=== PATIENT | female | born 1990 | race Caucasian/White ===

== ENCOUNTER 2017-06-08 09:05 | Emergency (ER) | END 2017-06-08 12:42 | disposition home or self-care (01) ==

== ENCOUNTER 2017-12-10 11:20 | Emergency (ER) | END 2017-12-10 14:19 | disposition home or self-care (01) ==

== ENCOUNTER 2018-03-31 18:42 | Emergency (ER) | END 2018-03-31 21:58 | disposition home or self-care (01) ==

== ENCOUNTER 2018-09-30 18:54 | Emergency (ER) | payer OTHER ==
[~2018-09-30] VITALS: Ht 165.1 cm; Wt 104.0 kg
[~2018-09-30 18:54] MED LIST: CYCL5TAB PO; FERR240T9 PO; HYDR-4011 PO; IBUP-1542 PO; PRENAT PO; TAMS-14 PO
[2018-09-30 19:02] VITALS: BP 133/66; PULSE 102; RESP 18; Ht 165.1 cm; Wt 104.0 kg
[2018-09-30] MEDS ORDERED: AMOX500C2 PO (19:44)
[2018-09-30] MEDS ORDERED: IBUP-1542 PO (19:44)
--- NOTE | 2018-09-30 19:47 | ERD ---
ER Documentation Chief Complaint Chief Complaint BODY ACHES AND FEVER X 2 DAYS HPI 28-year-old female presents with sore throat, body aches and fever for the last 3 days. She denies cough, vomiting, abdominal pain, urinary complaints. ROS All systems reviewed and are negative except as per history of present illness. Medications Home Meds Active Scripts Amoxicillin* (Amoxicillin*) 500 Mg Cap, 500 MG PO TID for 10 Days, CAP Prov:NATHEN MENJIVAR MD 09/30/18 Ibuprofen* (Motrin*) 600 Mg Tab, 600 MG PO Q6, #20 TAB Prov:NATHEN MENJIVAR MD 09/30/18 Tamsulosin Hcl* (Flomax*) 0.4 Mg Cap.er.24h, 0.4 MG PO BID, #30 CAP Prov:MARBELLA ANTONIO PA-C 12/10/17 Hydrocodone/Acetaminophen (Irving 5-325 Tablet) 1 Each Tablet, 1 TAB PO Q6H PRN for PAIN, #7 TAB Prov:MARBELLA ANTONIO PA-C 12/10/17 Cyclobenzaprine Hcl* (Cyclobenzaprine Hcl*) 5 Mg Tablet, 5 MG PO Q8H PRN for PAIN, #15 TAB Prov:NOHEMY GLEZ PA-C 06/08/17 Ibuprofen* (Motrin*) 600 Mg Tab, 600 MG PO Q6, #30 TAB Prov:NOHEMY GLEZ PA-C 06/08/17 Reported Medications Ferrous Gluconate (Iron) 1 Tab Tablet, 1 TAB PO DAILY 10/05/14 Multivit/Min/Fol Ac/Iron/Pren* ( S*) 1 Tab Tab, 1 TAB PO DAILY, TAB 10/05/14 Allergies Allergies: Coded Allergies: No Known Allergy (Verified , 06/08/17) PMhx/Soc History of Surgery: No Anesthesia Reaction: No Hx Neurological Disorder: No Hx Respiratory Disorders: No Hx Cardiac Disorders: No Hx Psychiatric Problems: No Hx Miscellaneous Medical Probl: No Hx Alcohol Use: No Hx Substance Use: No Hx Tobacco Use: No FmHx Family History: No diabetes, No coronary disease, No other Physical Exam Vitals Vital Signs Date Temp Pulse Resp B/P (MAP) Pulse Ox O2 O2 Flow FiO2 Time Delivery Rate 09/30/18 100.6 102 18 133/66 99 19:02 (88) Physical Exam Const: No acute distress Head: Atraumatic Eyes: Normal Conjunctiva ENT: Normal External Ears, Nose and Mouth. TMs normal. Tonsils 3+ with erythema and exudate. Uvula midline and airway patent. Neck: Full range of motion. No meningismus. Resp: Clear to auscultation bilaterally Cardio: Regular rate and rhythm, no murmurs Abd: Soft, non tender, non distended. Normal bowel sounds Skin: No petechiae or rashes Back: No midline or flank tenderness Ext: No cyanosis, or edema Neur: Awake and alert Psych: Normal Mood and Affect Results 24 hrs Current Medications Medications Dose Sig/Luis Manuel Start Time Status Last (Trade) Ordered Route PRN Stop Time Admin Dose Reason Admin Amoxicillin 500 mg ONCE ONCE 09/30/18 PO 20:00 (Amoxicillin) 09/30/18 20:01 Ibuprofen 600 mg ONCE ONCE 09/30/18 (Motrin) PO 20:00 09/30/18 20:01 Procedures/MDM Patient presents with febrile illness, body aches and signs of exudative pharyngitis. We will treat empirically with amoxicillin, ibuprofen, primary care follow-up and return precautions. The patient was stable with no new complaints during the ER course. Clinically, there is no current evidence to suggest meningitis, sepsis, acute abdomen, pneumonia, stroke, acute coronary syndrome, pulmonary embolism, aortic dissection or any other emergent condition appearing to require further evaluation or hospitalization. Patient counseled regarding my diagnostic impression and care plan. Prior to discharge all questions answered. Pt agrees with treatment plan and understands strict return precautions. Pt is instructed to follow up with primary care provider within 24- 48 hours. Precautionary instructions provided including instructions to return to the ER if not improving or for any worsening or changing symptoms or concerns. Departure Diagnosis: Primary Impression: Pharyngitis Pharyngitis/tonsillitis etiology: unspecified etiology Qualified Codes: J02.9 - Acute pharyngitis, unspecified Condition: Stable Patient Instructions: Pharyngitis, Strep (Presumed) Additional Instructions: Drink plenty of fluids at home. Recheck for new worsening symptoms of pain with your doctor. NATHEN MENJIVAR MD Sep 30, 2018 19:47
[2018-09-30] MEDS ORDERED: IBUPROFEN 600 MG TAB PO ONE (20:00)
[2018-09-30] MEDS ORDERED: AMOXICILLIN 500 MG CAP PO ONE (20:00)
== END 2018-09-30 20:14 | disposition home or self-care (01) ==
LOC: FTE 18:54
DX: J02.9 Acute pharyngitis, unspecified (principal)
CPT/HCPCS: Z7502; Z7610; 99283